=== PATIENT | female | born 1945 | race Caucasian/White ===

== ENCOUNTER 2016-10-24 08:58 | Outpatient (CLI) | payer OTHER ==
[~2016-10-24 08:58] MED LIST: ASPI-1145 PO; EXCEDRIN; IMI50 PO; IMITREX; SUMA100T PO; TIZA6CAP PO
== END 2016-10-24 18:53 | disposition home or self-care (01) ==
LOC: SRD 08:58
PROVIDERS: ATTEND Internal Medicine
DX: M47.892 Other spondylosis, cervical region (principal); M85.88 Other specified disorders of bone density and structure, other site
CPT/HCPCS: 72050-TC

== ENCOUNTER 2016-12-23 13:20 | Emergency (ER) | payer OTHER ==
[~2016-12-23] VITALS: Ht 162.6 cm; Wt 64.4 kg
[2016-12-23 13:20] VITALS: BP 111/63; PULSE 82; RESP 19; O2SAT 98
--- NOTE | 2016-12-23 13:20 | NUR ---
Placed in room 1 . Placed on cardiac nurse specialist, blood pressure machine and pulse oximeter. To gown for exam. Side rails up.
--- NOTE | 2016-12-23 13:20 | NUR ---
pt brought in by wheelchair by sfaff member,pt felt dizzy,had near syncope episode while in the restroom, pt is awake,alert oriented x4.no apparent neuro deficit noted.equal truck dispatcher and pushes.no motor weakness.speech is clear.still feels dizzy.denies any pain and sob.
--- NOTE | 2016-12-23 13:28 | NUR ---
# 20 gauge angiocath placed to lac . Use of asceptic technique. Opsite placed over site. Blood return noted. Blood for lab drawn from site. Flushed with 10 cc of normal saline. No evidence of infiltration noted. Patient tolerated well.
--- NOTE | 2016-12-23 13:28 | NUR ---
ER at bedside examining patient.
[2016-12-23] MEDS ORDERED: NACL 0.9% 1,000 ML IV ONE (13:30)
[2016-12-23 13:40] LABS: BASOPHILS # (AUTO) 0.1 K/uL (0.0-0.2); BASOPHILS % (AUTO) 0.6 % (0.0-2.0); EOSINOPHILS # (AUTO) 0.2 K/uL (0.0-0.4); EOSINOPHILS % (AUTO) 1.7 % (0.0-4.0); HEMATOCRIT 41.3 % (36-48); HEMOGLOBIN 13.6 g/dL (12.0-16.0); LYMPHOCYTES # (AUTO) 3.6 K/uL (1.0-5.5); LYMPHOCYTES % (AUTO) 35.1 % (20.5-51.5); MEAN CORPUSCULAR HEMOGLOBIN 31 pg (27-31); MEAN CORPUSCULAR HGB CONC 33 % (32-36); MEAN CORPUSCULAR VOLUME 95 fL (79.0-98.0); MONOCYTES # (AUTO) 0.5 K/uL (0.0-1.0); MONOCYTES % (AUTO) 4.9 % (1.7-9.3); NEUTROPHILS # (AUTO) 5.8 K/uL (1.8-7.7); NEUTROPHILS % (AUTO) 57.7 % (40.0-70.0); PLATELET COUNT (AUTO) 200 K/uL (130-430); RED BLOOD CELL COUNT(AUTO) 4.37 MIL/uL (4.2-6.2); RED CELL DISTRIBUTION WIDTH 12.6 % (9.0-15.0); WHITE BLOOD COUNT (AUTO) 10.2 K/uL (4.8-10.8)
--- NOTE | 2016-12-23 13:42 | NUR ---
pt c/o having diarrhea for two weeks,mild upper abdominal pain 2/10.no blood in stool.
[2016-12-23 13:50] LABS: ANION GAP 8 (5-15); CALCIUM 9.2 mg/dL (8.4-11.0); CHLORIDE 106 mmol/L (98-107); CREATININE 1.04 mg/dL (0.55-1.30); GLUCOSE 129 mg/dL (70-99); POTASSIUM 3.4 mmol/L (3.5-5.1); SODIUM SERUM 140 mmol/L (136-145); UREA NITROGEN, BLOOD 20 mg/dL (8-21)
[2016-12-23 13:51] LABS: PROTHROMBIN TIME 11.1 SECS (9.5-12.5)
[2016-12-23 13:52] LABS: ALANINE AMINOTRANSFERASE 28 U/L (12-78); ALBUMIN 4.4 g/dL (3.4-4.8); ASPARTATE AMINOTRANSFERASE 23 U/L (10-37); TOTAL BILIRUBIN 0.4 mg/dL (0.0-1.0); TOTAL PROTEIN, SERUM 7.7 g/dL (6.4-8.3)
[2016-12-23 14:23] LABS: BILIRUBIN,URINE NEGATIVE (NEGATIVE); CLARITY/URINE SL HAZY (CLEAR); COLOR,URINE YELLOW (YELLOW); GLUCOSE,URINE NEGATIVE (NEGATIVE); KETONES,URINE TRACE (NEGATIVE); LEUKOCYTE ESTERASE ,URINE NEGATIVE (NEGATIVE); NITRITE, URINE NEGATIVE (NEGATIVE); PROTEIN URINE TRACE (NEGATIVE)
--- NOTE | 2016-12-23 14:23 | NUR ---
pt assisted to the restroom for a few times for the diarrhea.
[2016-12-23 14:27] LABS: BLOOD, URINE TRACE (NEGATIVE)
[2016-12-23 14:36] LABS: BACTERIA,URINE FEW /HPF (None Seen); RBC,URINE 0-3 /HPF (0-3); WBC,URINE NONE SEEN /HPF (0-3)
[2016-12-23 14:37] LABS: MUCUS,URINE 1+ /LPF (None Seen)
--- NOTE | 2016-12-23 14:54 | NUR ---
Patient given written and verbal discharge instructions and verbalizes understanding. ER MD discussed with patient the results and treatment provided. Patient in stable condition. ID arm band removed. IV catheter removed intact and dressing applied, no active bleeding. Rx of cipro given. Patient educated on pain management and to follow up with PMD. Pain Scale 0/10 . Opportunity for questions provided and answered.
[2016-12-23 14:59] VITALS: BP 119/78; PULSE 87; RESP 17; TEMP 98; O2SAT 99
== END 2016-12-23 14:59 | disposition home or self-care (01) ==
LOC: SED 13:20
DX: R55 Syncope and collapse (principal); R19.7 Diarrhea, unspecified; Z88.5 Allergy status to narcotic agent; Z86.73 Personal history of transient ischemic attack (TIA), and cerebral infarction without residual deficits
CPT/HCPCS: 36415; 71010; 80053; 81000; 83880; 84484; 85025; 85610; 85730; 93005; 96360; 99285; J7030

== ENCOUNTER 2017-01-21 06:02 | Outpatient (CLI) | payer OTHER ==
[~2017-01-21 06:02] MED LIST changes: -EXCEDRIN; -IMITREX; -SUMA100T PO
== END 2017-01-21 20:52 | disposition home or self-care (01) ==
LOC: SRD 06:02
PROVIDERS: ATTEND Internal Medicine
DX: S22.079A Unspecified fracture of T9-T10 vertebra, initial encounter for closed fracture (principal); M47.814 Spondylosis without myelopathy or radiculopathy, thoracic region; M81.0 Age-related osteoporosis without current pathological fracture; X58.XXXA Exposure to other specified factors, initial encounter; Y93.89 Activity, other specified; Y92.89 Other specified places as the place of occurrence of the external cause; Y99.8 Other external cause status
CPT/HCPCS: 72072-TC

== ENCOUNTER 2017-03-04 06:58 | Outpatient (CLI) | payer OTHER | END 2017-03-04 18:15 | disposition home or self-care (01) | LOC: SRD 06:58 | PROVIDERS: ATTEND Internal Medicine | DX: S22.009A Unspecified fracture of unspecified thoracic vertebra, initial encounter for closed fracture (principal); M47.894 Other spondylosis, thoracic region; M81.0 Age-related osteoporosis without current pathological fracture; X58.XXXA Exposure to other specified factors, initial encounter; Y93.89 Activity, other specified; Y92.89 Other specified places as the place of occurrence of the external cause; Y99.8 Other external cause status | CPT/HCPCS: 72072-TC ==

== ENCOUNTER 2017-04-10 09:41 | Outpatient (CLI) | payer OTHER | END 2017-04-10 20:20 | disposition home or self-care (01) | LOC: SRD 09:41 | PROVIDERS: ATTEND Internal Medicine | DX: M48.54XA Collapsed vertebra, not elsewhere classified, thoracic region, initial encounter for fracture (principal); M47.894 Other spondylosis, thoracic region | CPT/HCPCS: 72072-TC ==

== ENCOUNTER → 2017-04-22 | Outpatient (CLI) | payer OTHER ==
[2017-04-22 12:31] LABS: BASOPHILS # (AUTO) 0.1 K/uL (0.0-0.2); BASOPHILS % (AUTO) 0.7 % (0.0-2.0); EOSINOPHILS # (AUTO) 0.1 K/uL (0.0-0.4); EOSINOPHILS % (AUTO) 1.5 % (0.0-4.0); HEMATOCRIT 39.7 % (36-48); HEMOGLOBIN 13.5 g/dL (12.0-16.0); LYMPHOCYTES # (AUTO) 1.7 K/uL (1.0-5.5); LYMPHOCYTES % (AUTO) 19.7 % (20.5-51.5); MEAN CORPUSCULAR HEMOGLOBIN 32 pg (27-31); MEAN CORPUSCULAR HGB CONC 34 % (32-36); MEAN CORPUSCULAR VOLUME 94 fL (79.0-98.0); MONOCYTES # (AUTO) 0.3 K/uL (0.0-1.0); MONOCYTES % (AUTO) 3.9 % (1.7-9.3); NEUTROPHILS # (AUTO) 6.6 K/uL (1.8-7.7); NEUTROPHILS % (AUTO) 74.2 % (40.0-70.0); PLATELET COUNT (AUTO) 177 K/uL (130-430); RED BLOOD CELL COUNT(AUTO) 4.22 MIL/uL (4.2-6.2); RED CELL DISTRIBUTION WIDTH 12.9 % (9.0-15.0); WHITE BLOOD COUNT (AUTO) 8.8 K/uL (4.8-10.8)
[2017-04-22 12:43] LABS: ALANINE AMINOTRANSFERASE 21 U/L (12-78); ANION GAP 5 (5-15); ASPARTATE AMINOTRANSFERASE 18 U/L (10-37); CHLORIDE 110 mmol/L (98-107); CREATININE 1.08 mg/dL (0.55-1.30); GLUCOSE 114 mg/dL (70-99); SODIUM SERUM 141 mmol/L (136-145); TOTAL BILIRUBIN 0.4 mg/dL (0.0-1.0); UREA NITROGEN, BLOOD 22 mg/dL (8-21)
[2017-04-22 12:51] LABS: ALBUMIN 4.2 g/dL (3.4-4.8)
[2017-04-22 12:58] LABS: PROTHROMBIN TIME 10.7 SECS (9.5-12.5)
== END | disposition home or self-care (01) ==
LOC: SLB 11:50
PROVIDERS: ATTEND Internal Medicine
DX: T14.8 Other injury of unspecified body region (principal); X58.XXXA Exposure to other specified factors, initial encounter; Y93.89 Activity, other specified; Y92.89 Other specified places as the place of occurrence of the external cause; Y99.8 Other external cause status
CPT/HCPCS: 36415; 80053; 82306; 82607; 85025; 85610-TC; 85730-TC

== ENCOUNTER 2017-05-12 06:36 | Outpatient (CLI) | payer OTHER | END 2017-05-12 19:42 | disposition home or self-care (01) | LOC: SRD 06:36 | PROVIDERS: ATTEND Internal Medicine | DX: M47.896 Other spondylosis, lumbar region (principal); M81.0 Age-related osteoporosis without current pathological fracture; I70.90 Unspecified atherosclerosis | CPT/HCPCS: 72110 ==

== ENCOUNTER 2017-05-14 08:31 | Inpatient (IN) | payer OTHER ==
[~2017-05-14] VITALS: Ht 162.6 cm; Wt 64.4 kg
[2017-05-14 08:34] VITALS: BP_SYST 115
[2017-05-14] MEDS ORDERED: ASPIRIN 325 MG TABLET ONE (08:44)
[2017-05-14] MEDS ORDERED: NITROGLYCERIN 0.4 MG TAB.SUBL SL ONE ×2 (08:44→08:45)
[2017-05-14] MEDS ORDERED: ASPIRIN 81 MG TAB.CHEW PO ONE (08:45)
[2017-05-14] MEDS ORDERED: ONDANSETRON HCL 4 MG/2 ML VIAL IVP ONE (08:45)
[2017-05-14] MEDS ORDERED: MORPHINE 2 MG/ML INJ. SYRINGE IVP ONE (08:45)
[2017-05-14] MEDS ORDERED: NS 500 ML IV ONE (08:45)
[2017-05-14 09:28] LABS: BASOPHILS # (AUTO) 0.1 K/uL (0.0-0.2); BASOPHILS % (AUTO) 0.6 % (0.0-2.0); EOSINOPHILS # (AUTO) 0.2 K/uL (0.0-0.4); EOSINOPHILS % (AUTO) 1.6 % (0.0-4.0); HEMATOCRIT 41.7 % (36-48); HEMOGLOBIN 13.9 g/dL (12.0-16.0); LYMPHOCYTES # (AUTO) 4.2 K/uL (1.0-5.5); LYMPHOCYTES % (AUTO) 39.1 % (20.5-51.5); MEAN CORPUSCULAR HEMOGLOBIN 31 pg (27-31); MEAN CORPUSCULAR HGB CONC 33 % (32-36); MEAN CORPUSCULAR VOLUME 93 fL (79.0-98.0); MONOCYTES # (AUTO) 0.7 K/uL (0.0-1.0); MONOCYTES % (AUTO) 6.1 % (1.7-9.3); NEUTROPHILS # (AUTO) 5.6 K/uL (1.8-7.7); NEUTROPHILS % (AUTO) 52.6 % (40.0-70.0); PLATELET COUNT (AUTO) 216 K/uL (130-430); RED BLOOD CELL COUNT(AUTO) 4.47 MIL/uL (4.2-6.2); RED CELL DISTRIBUTION WIDTH 12.9 % (9.0-15.0); WHITE BLOOD COUNT (AUTO) 10.8 K/uL (4.8-10.8)
[2017-05-14 09:31] LABS: ANION GAP 12 (5-15); CALCIUM 9.5 mg/dL (8.4-11.0); CHLORIDE 109 mmol/L (98-107); GLUCOSE 124 mg/dL (70-99); POTASSIUM 3.6 mmol/L (3.5-5.1); SODIUM SERUM 141 mmol/L (136-145); UREA NITROGEN, BLOOD 20 mg/dL (8-21)
[2017-05-14 09:33] LABS: PROTHROMBIN TIME 10.7 SECS (9.5-12.5)
[2017-05-14 09:36] LABS: ALANINE AMINOTRANSFERASE 19 U/L (12-78); ASPARTATE AMINOTRANSFERASE 18 U/L (10-37); TOTAL BILIRUBIN 0.6 mg/dL (0.0-1.0)
[2017-05-14 10:30] VITALS: BP_SYST 115
[2017-05-14 10:54] VITALS: BP_SYST 115
[2017-05-14] MEDS ORDERED: SUMAtriptan SUCCINATE 50 MG TABLET PO ONE (12:00)
[2017-05-14 12:27] LABS: BILIRUBIN,URINE NEGATIVE (NEGATIVE); BLOOD, URINE 1+ (NEGATIVE); CLARITY/URINE CLEAR (CLEAR); COLOR,URINE YELLOW (YELLOW); GLUCOSE,URINE NEGATIVE (NEGATIVE); KETONES,URINE NEGATIVE (NEGATIVE); LEUKOCYTE ESTERASE ,URINE NEGATIVE (NEGATIVE); NITRITE, URINE NEGATIVE (NEGATIVE); PH,URINE 5.5 (5.0-8.0); PROTEIN URINE NEGATIVE (NEGATIVE); UROBILINOGEN,URINE 0.2 (0.2-1.0)
[2017-05-14 12:43] LABS: BACTERIA,URINE FEW /HPF (None Seen); MUCUS,URINE None Seen /LPF (None Seen); RBC,URINE 0-3 /HPF (0-3); WBC,URINE 0-3 /HPF (0-3)
[2017-05-14] MEDS ORDERED: ACT35 PO (14:29)
[2017-05-14 20:00] VITALS: BP_SYST 108
[2017-05-15 00:11] VITALS: BP_SYST 111
[2017-05-15 05:54] VITALS: BP_SYST 108
[2017-05-15 06:32] LABS: BASOPHILS % (AUTO) 0.5 % (0.0-2.0); EOSINOPHILS # (AUTO) 0.2 K/uL (0.0-0.4); EOSINOPHILS % (AUTO) 1.8 % (0.0-4.0); HEMATOCRIT 34.7 % (36-48); HEMOGLOBIN 11.8 g/dL (12.0-16.0); LYMPHOCYTES # (AUTO) 1.6 K/uL (1.0-5.5); LYMPHOCYTES % (AUTO) 19.2 % (20.5-51.5); MEAN CORPUSCULAR HEMOGLOBIN 32 pg (27-31); MEAN CORPUSCULAR HGB CONC 34 % (32-36); MEAN CORPUSCULAR VOLUME 94 fL (79.0-98.0); MONOCYTES # (AUTO) 0.5 K/uL (0.0-1.0); NEUTROPHILS % (AUTO) 72.5 % (40.0-70.0); PLATELET COUNT (AUTO) 143 K/uL (130-430); RED BLOOD CELL COUNT(AUTO) 3.68 MIL/uL (4.2-6.2); RED CELL DISTRIBUTION WIDTH 12.9 % (9.0-15.0); WHITE BLOOD COUNT (AUTO) 8.3 K/uL (4.8-10.8)
[2017-05-15 07:54] VITALS: BP_SYST 109
[2017-05-15 08:55] LABS: ALANINE AMINOTRANSFERASE 14 U/L (12-78); ANION GAP 11 (5-15); ASPARTATE AMINOTRANSFERASE 15 U/L (10-37); CALCIUM 8.6 mg/dL (8.4-11.0); CHLORIDE 112 mmol/L (98-107); CREATININE 0.73 mg/dL (0.55-1.30); GLUCOSE 85 mg/dL (70-99); POTASSIUM 3.6 mmol/L (3.5-5.1); SODIUM SERUM 143 mmol/L (136-145); TOTAL BILIRUBIN 0.4 mg/dL (0.0-1.0); UREA NITROGEN, BLOOD 11 mg/dL (8-21)
[2017-05-15 08:56] LABS: ALBUMIN 3.3 g/dL (3.4-4.8)
[2017-05-15 09:00] LABS: THYROID STIMULATING HORMONE 0.83 uIu/mL (0.36-3.74)
[2017-05-15 09:14] LABS: CHOLESTEROL 206 mg/dL (<200); HDL CHOLESTEROL 44 mg/dL (>55); LDL CHOLESTEROL 161 mg/dL (<100); TRIGLYCERIDES 134 mg/dL (30-150)
[2017-05-15 12:17] VITALS: BP_SYST 127
[2017-05-15 13:00] VITALS: BP_SYST 113
[2017-05-15] MEDS ORDERED: CYANOCOBALAMIN 1000 MCG/ML VIAL IM ONE (13:00)
== END 2017-05-15 13:20 | disposition home or self-care (01) | DRG 312 ==
LOC: SED 08:31 → STU 10:19
PROVIDERS: ADMIT Internal Medicine; ATTEND Internal Medicine
DX: R55 Syncope and collapse (principal); R00.1 Bradycardia, unspecified; M81.0 Age-related osteoporosis without current pathological fracture; G44.89 Other headache syndrome; M19.90 Unspecified osteoarthritis, unspecified site; K58.1 Irritable bowel syndrome with constipation; J45.909 Unspecified asthma, uncomplicated; Z88.5 Allergy status to narcotic agent; Z79.1 Long term (current) use of non-steroidal anti-inflammatories (NSAID); Z79.82 Long term (current) use of aspirin; Z79.899 Other long term (current) drug therapy; Z88.8 Allergy status to other drugs, medicaments and biological substances; Z86.73 Personal history of transient ischemic attack (TIA), and cerebral infarction without residual deficits
CPT/HCPCS: 36415; 70450-TC; 71010; 80053; 80061; 81000-TC; 83605; 84443-TC; 84484; 85025; 85610-TC; 85730-TC; 87040-TC; 87086; 93005; 93306; 99285; J2270; J2405; J7030

== ENCOUNTER 2017-05-16 15:23 | Emergency (ER) | payer OTHER ==
[~2017-05-16] VITALS: Ht 162.6 cm; Wt 63.5 kg
[~2017-05-16 15:23] MED LIST changes: +ACT35 PO
[2017-05-16 15:33] VITALS: BP_SYST 134
[2017-05-16] MEDS ORDERED: KETOROLAC TROMETHAMINE 60 MG/2 ML VIAL IM ONE (16:15)
[2017-05-16 16:20] VITALS: BP_SYST 121
== END 2017-05-16 16:20 | disposition home or self-care (01) ==
LOC: SED 15:23
DX: S20.211A Contusion of right front wall of thorax, initial encounter (principal); Z86.73 Personal history of transient ischemic attack (TIA), and cerebral infarction without residual deficits; X58.XXXA Exposure to other specified factors, initial encounter; Y93.89 Activity, other specified; Y92.89 Other specified places as the place of occurrence of the external cause; Y99.8 Other external cause status
CPT/HCPCS: 71010; 71100; 99284

== ENCOUNTER 2017-07-22 09:05 | Outpatient (CLI) | payer OTHER | END 2017-07-22 19:09 | disposition home or self-care (01) | LOC: SCT 09:05 | PROVIDERS: ATTEND Internal Medicine | DX: I70.0 Atherosclerosis of aorta (principal); R91.1 Solitary pulmonary nodule | CPT/HCPCS: 71250-TC ==

== ENCOUNTER 2022-09-16 09:34 | Inpatient (IN) | payer OTHER ==
[~2022-09-16] VITALS: Ht 162.6 cm; Wt 56.7 kg
[2022-09-16 09:42] VITALS: BP_SYST 124
--- NOTE | 2022-09-16 09:45 | NUR ---
Patient triaged and placed in waiting room. VSS and patient appears in no acute distress at this time. Accompanied by BLS , awaiting available bed, and MD notified of need for MSE.
--- NOTE | 2022-09-16 09:47 | NUR ---
COVID AND INFLUENZA SWABS COLLECTED AND SENT TO LAB.
--- NOTE | 2022-09-16 10:05 | NUR ---
MD GONZALES AT BEDSIDE FOR MSE.
[2022-09-16] MEDS ORDERED: NACL 0.9% 1,000 ML IV ONE ×2 (10:15)
--- NOTE | 2022-09-16 10:16 | NUR ---
Patient to ER bed 04 to gown for evaluation. Side rails up. Report given to Mykel DECKER.
[2022-09-16 10:41] LABS: BASOPHILS % (AUTO) 0.3 % (0.0-2.0); EOSINOPHILS % (AUTO) 0.2 % (0.0-4.0); HEMATOCRIT 37.4 % (36-48); HEMOGLOBIN 12.6 g/dL (12.0-16.0); LYMPHOCYTES # (AUTO) 0.6 K/uL (1.0-5.5); LYMPHOCYTES % (AUTO) 4.6 % (20.5-51.5); MEAN CORPUSCULAR HEMOGLOBIN 31 pg (27-31); MEAN CORPUSCULAR HGB CONC 34 % (32-36); MEAN CORPUSCULAR VOLUME 93 fL (79.0-98.0); MONOCYTES % (AUTO) 8.1 % (1.7-9.3); NEUTROPHILS # (AUTO) 10.6 K/uL (1.8-7.7); NEUTROPHILS % (AUTO) 86.8 % (40.0-70.0); PLATELET COUNT (AUTO) 229 K/uL (130-430); RED BLOOD CELL COUNT(AUTO) 4.04 MIL/uL (4.2-6.2); RED CELL DISTRIBUTION WIDTH 13.1 % (9.0-15.0); WHITE BLOOD COUNT (AUTO) 12.2 K/uL (4.8-10.8)
[2022-09-16 10:55] LABS: ANION GAP 14 (5-15); CALCIUM 8.9 mg/dL (8.4-11.0); CHLORIDE 100 mmol/L (98-107); CREATININE 0.85 mg/dL (0.55-1.30); GLUCOSE 113 mg/dL (70-99); UREA NITROGEN, BLOOD 10 mg/dL (8-21)
[2022-09-16 11:00] LABS: ALANINE AMINOTRANSFERASE 20 U/L (12-78); ALBUMIN 3.3 g/dL (3.4-4.8); ASPARTATE AMINOTRANSFERASE 16 U/L (10-37); LIPASE 113 U/L (73-393); TOTAL BILIRUBIN 0.7 mg/dL (0.0-1.0)
[2022-09-16] MEDS ORDERED: DOXYCYCLINE HYCLATE 100 MG in D5W 100 ML IV ONE (11:30)
[2022-09-16] MEDS ORDERED: cefTRIAXone 1 GM in D5W 50 ML IV ONE (11:30)
[2022-09-16] MEDS ORDERED: cefTRIAXone 1 GM VIAL ONE (11:36)
[2022-09-16] MEDS ORDERED: DOXYCYCLINE HYCLATE 100 MG VIAL IV ONE (11:36)
[2022-09-16] MEDS ORDERED: MOXI400T30 PO ×2 (12:29)
[2022-09-16 13:39] LABS: BILIRUBIN,URINE NEGATIVE (NEGATIVE); BLOOD, URINE NEGATIVE (NEGATIVE); CLARITY/URINE CLEAR (CLEAR); COLOR,URINE YELLOW (YELLOW); GLUCOSE,URINE NEGATIVE (NEGATIVE); KETONES,URINE TRACE (NEGATIVE); LEUKOCYTE ESTERASE ,URINE NEGATIVE (NEGATIVE); NITRITE, URINE NEGATIVE (NEGATIVE); PROTEIN URINE NEGATIVE (NEGATIVE); UROBILINOGEN,URINE 0.2 (0.2-1.0)
[2022-09-16] MEDS ORDERED: ALEN70TA84 PO (14:32)
[2022-09-16] MEDS ORDERED: TIZA-321 PO (14:32)
[2022-09-16] MEDS ORDERED: SUMA100T PO (14:32)
--- NOTE | 2022-09-16 14:45 | NUR ---
Admit bed requested Patient will be admitted to care of Dr Erlinda JAVIER Admitted to MED SURG unit. Diagnosis PNA Inpatient (Yes or No) YES Observation (Yes or No) NO Orientation concerns or request close to nursing station (Yes or No) NO Covid Status NEGATIVE On vent or bipap NO Isolation requirements NO Needs a sitter NO From Home (Yes or if No enter name of facility) YES Requires Dialysis (Yes or No) NO Med Rec Completed (Yes of No) YES
[2022-09-16] MEDS ORDERED: ALENDRONATE SODIUM 70 MG TABLET (FOSAMAX) PO SCH ×2 (15:00→15:09)
[2022-09-16] MEDS ORDERED: tiZANidine HCL 4 MG TABLET PO PRN (15:00)
[2022-09-16] MEDS ORDERED: MOXIFLOXACIN HCL 400 MG TABLET (AVELOX) PO SCH (15:00)
[2022-09-16] MEDS ORDERED: SUMATRIPTAN SUCCINATE 100 MG PO SCH (15:00)
[2022-09-16] MEDS ORDERED: ACETAMINOPHEN 500 MG TABLET PO PRN (15:00)
[2022-09-16] MEDS: SUMAtriptan SUCCINATE 50 MG TABLET PO PRN (15:45)
[2022-09-16] MEDS: AZITHROMYCIN 500 MG in NS 250 ML IV SCH (19:24)
--- NOTE | 2022-09-16 20:26 | NUR ---
Patient will be admitted to care of Dr Friedman. Admitted tomedsurg unit. Will go to room 107B. Belongings list completed. Complete and up to date summary report printed. SBAR report given to BRIANNE Ann
--- NOTE | 2022-09-16 20:30 | NUR ---
ADMISSION NOTE Received patient from ER via gurney. Patient admitted with diagnosis of PNA. Patient is awake, alert, oriented X 4. Patient oriented to hospital room, call light, toileting, pain management and safety-teach back done. Patient informed that Kedar DECKER will be the nurse and that their room number is 106B. Personal belongings checked and Belongings List documented. Call light within reach.
--- NOTE | 2022-09-16 21:05 | NUR ---
Dr. JAVIER Paged due to patient reporting pain and requesting something other that tylenol. New order for Tramadol 50MG Q6H PRN for pain. Order noted and carried out.
[2022-09-16] MEDS: traMADol HCL HCL 50 MG TABLET (ULTRAM) PO PRN (21:42)
[2022-09-16 21:43] VITALS: BP_SYST 118
[2022-09-17] VITALS (7 sets, daily range): BP systolic 98–141
[2022-09-17] MEDS: traMADol HCL HCL 50 MG TABLET (ULTRAM) PO PRN ×2 (03:58→20:50)
--- NOTE | 2022-09-17 05:15 | NUR ---
CONSULTATION PAGED/CALLED Reason for Consultation: PNA Person Who was Notified: MERI Consulting Physician: JOEL Loop Cutter Specialty: Ordering Physician: YAYA
[2022-09-17 06:35] LABS: BASOPHILS % (AUTO) 0.3 % (0.0-2.0); EOSINOPHILS # (AUTO) 0.1 K/uL (0.0-0.4); EOSINOPHILS % (AUTO) 1.1 % (0.0-4.0); HEMATOCRIT 29.5 % (36-48); HEMOGLOBIN 10.3 g/dL (12.0-16.0); LYMPHOCYTES # (AUTO) 1.1 K/uL (1.0-5.5); MEAN CORPUSCULAR HEMOGLOBIN 32 pg (27-31); MEAN CORPUSCULAR HGB CONC 35 % (32-36); MEAN CORPUSCULAR VOLUME 92 fL (79.0-98.0); MONOCYTES # (AUTO) 0.9 K/uL (0.0-1.0); MONOCYTES % (AUTO) 8.8 % (1.7-9.3); NEUTROPHILS # (AUTO) 8.4 K/uL (1.8-7.7); NEUTROPHILS % (AUTO) 79.8 % (40.0-70.0); PLATELET COUNT (AUTO) 200 K/uL (130-430); RED BLOOD CELL COUNT(AUTO) 3.22 MIL/uL (4.2-6.2); RED CELL DISTRIBUTION WIDTH 12.9 % (9.0-15.0); WHITE BLOOD COUNT (AUTO) 10.5 K/uL (4.8-10.8)
[2022-09-17 07:03] LABS: ALANINE AMINOTRANSFERASE 15 U/L (12-78); ALBUMIN 2.4 g/dL (3.4-4.8); ANION GAP 13 (5-15); ASPARTATE AMINOTRANSFERASE 12 U/L (10-37); CHLORIDE 105 mmol/L (98-107); CREATININE 0.56 mg/dL (0.55-1.30); GLUCOSE 89 mg/dL (70-99); TOTAL BILIRUBIN 0.4 mg/dL (0.0-1.0); UREA NITROGEN, BLOOD 8 mg/dL (8-21)
--- NOTE | 2022-09-17 07:15 | NUR ---
opening note received SBAR from night RN. Patient in bed, respirations even, non labored, bed in low and locked position, call light within reach, bed alarm on.
--- NOTE | 2022-09-17 08:26 | NUR ---
PAGED DR SCHWARTZ SPOKE WITH NEENA REGARDING LOW POTASSIUM 3.3 AND PATIENT IS COMPLAINING OF MIGRAINE AND REQUESTING IMETREX
[2022-09-17] MEDS: cefTRIAXone 1 GM in D5W 50 ML IV SCH (08:50)
--- NOTE | 2022-09-17 09:00 | NUR ---
BATHROOM AMBULATED PATIENT TO THE BATHROOM, VOIDED, RETURNED TO BED,
--- NOTE | 2022-09-17 09:32 | NUR ---
MD DR MOORE ON THE FLOOR, NOTIFIED OF POTASSIUM 3.3 NEW ORDERS RECEIVED
[2022-09-17] MEDS ORDERED: POTASSIUM CHLORIDE 20 MEQ/PKT PACKET PO ONE (09:45)
--- NOTE | 2022-09-17 11:00 | NUR ---
MIGRAINE PATIENT COMPLAINING OF ON COMING MIGRAINE, CLOSED BLINDS, TURNED OFF LIGHTS.
[2022-09-17] MEDS: SUMAtriptan SUCCINATE 50 MG TABLET PO PRN (11:35)
--- NOTE | 2022-09-17 11:59 | NUR ---
BREATHING TREATMENT PATIENT REQUESTING BREATHING TREATMENT, STATES SHE IS HAVING A HARD TIME BREATHING. LISTENED TO LUNGS, DIMINISHED LUNG SOUNDS AT THE BASE. OFFERED TO PLACE PATIENT ON 2L NASAL CANULA AND CALL MD FOR BREATHING TREATMENT ORDER. PATIENT REFUSED 02 BY NASAL CANULA STATES IS MAKES HER NAUSEOUS. EDUCATED PATIENT ON THE INDICATIONS OF 02, ANSWERED ALL QUESTIONS, PATIENT CONTINUED TO REFUSE.
--- NOTE | 2022-09-17 12:02 | NUR ---
PAGED DR MOODY AND SPOKE WITH AUDRA FOR ORDERS FOR BREATHING TREATMENT. Addendum: 09/17/22 at 1206 by Ben Martinez RN DR MOORE
--- NOTE | 2022-09-17 12:06 | NUR ---
SPOKE WITH DR MOORE, INFORMED OF REQUEST FOR BREATHING TREATMENTS, HE STATES HE WILL PLACE ORDERS
[2022-09-17] MEDS ORDERED: PANTOPRAZOLE SODIUM 40 MG/VIAL (PROTONIX) IVP ONE (12:30)
--- NOTE | 2022-09-17 17:15 | NUR ---
PAGED DR JAVIER FOR ORDERS FOR NAUSEA. SPOKE WITH NICHOLE
--- NOTE | 2022-09-17 18:11 | NUR ---
MD INFORMED MD THAT PATIENT IS COMPLAINING OF NAUSEA, NEW ORDERS RECEIVED
[2022-09-17] MEDS ORDERED: ONDANSETRON HCL 4 MG/2 ML VIAL IVP PRN (18:15)
--- NOTE | 2022-09-17 19:16 | NUR ---
CLOSING NOTE PROVIDED SBAR TO NIGHT RN. PATIENT IN BED, RESPIRATIONS EVEN, NON LABORED, BED IN LOW AND LOCKED POSITION CALL LIGHT WITHIN REACH, BED ALARM ON. ENDORSED TO NIGHT RN. COLLECTION FOR STOOL, AND ADMINISTRATION OF ZOFRAN. PATIENT TO BE NPO AFTER MIDNIGHT FOR MORNING CT SCAN
--- NOTE | 2022-09-17 19:30 | NUR ---
OPENING NOTES: Patient received from AM shift nurse. Patient is in bed with daughter at bedside no s/s of distress is noted and call light is within reach. Chest rise is even and unlabored on RA. Patient was provided education about pending CT tomorrow and provided education on NPO status that will begin at Midnight, Patient verbalized understanding. Safety measures are in place as per protocol. Will resume care and continue to monitor throughout the shift.
[2022-09-17] MEDS: PANTOPRAZOLE SODIUM 40 MG/VIAL (PROTONIX) IVP SCH (20:52)
[2022-09-17] MEDS: AZITHROMYCIN 500 MG in NS 250 ML IV SCH (20:52)
[2022-09-17] MEDS: ALBUTEROL SULFATE 0.083% 2.5 MG/3 ML VIAL.NEB INH PRN (21:13)
[2022-09-18 00:49] VITALS: BP_SYST 100; BP_SYST 140
--- NOTE | 2022-09-18 06:28 | NUR ---
CLOSING NOTES: Patient is in bed resting no s/s of distress is noted at this time, chest rise is even and unlabored on RA. Patient is AA&Ox4 able to make needs known, with call light within reach. Patient has a pending CT this morning so Patient is NPO since Midnight. Patient was provided education on NPO status and verbalized understanding. Patient has orders for a stool culture that was not collected because patient did not pass stool this shift so will endorse to AM shift RN. Safety measures are in place as per protocol. Will differ care to AM shift nurse for continuity of care.
--- NOTE | 2022-09-18 07:30 | NUR ---
Received patient awake, alert and oriented x4, in no acute distress. Respiration is even and unlabored with no c/o SOB. Head to toe assessment is done. Patient is NPO. No c/o pain at this time. Awaiting for CT of he abdomen. VSS
[2022-09-18] MEDS ORDERED: DIATR MEGLU/DIATRIZ SOD 30 ML SOLUTION PO ONE (07:41)
[2022-09-18 08:00] VITALS: BP_SYST 126
[2022-09-18] MEDS: PANTOPRAZOLE SODIUM 40 MG/VIAL (PROTONIX) IVP SCH ×2 (09:52→21:40)
[2022-09-18] MEDS: cefTRIAXone 1 GM in D5W 50 ML IV SCH (09:53)
--- NOTE | 2022-09-18 10:10 | NUR ---
Patient went to CT of the abdomen with IV contrast, consent is signed.
[2022-09-18] MEDS ORDERED: NALOXONE HCL 0.4 MG/ML AMP (NARCAN) IVP PRN (10:45)
--- NOTE | 2022-09-18 10:49 | NUR ---
Came back with CT w/ c/o pain on the neck, head, back. Patient requested for strong pain medication, refused Ultram at this time. Called Dr. Meng with orders. Order made, noted, and carried out. Patient made aware.
[2022-09-18 11:25] VITALS: BP_SYST 121
[2022-09-18 11:27] LABS: ANION GAP 11 (5-15); CALCIUM 8.7 mg/dL (8.4-11.0); CHLORIDE 104 mmol/L (98-107); CREATININE 0.64 mg/dL (0.55-1.30); GLUCOSE 102 mg/dL (70-99); UREA NITROGEN, BLOOD 6 mg/dL (8-21)
[2022-09-18] MEDS: HYDROcodone/ACETAMIN 5-325 MG TAB (NORCO/ VICODIN) PO PRN (11:53)
--- NOTE | 2022-09-18 13:00 | NUR ---
Dietitian Recommendations * Rec regular diet when appropriate * Please change diet order to reflect current diet * Send snacks in between meals (RD entered in [employer]) GS, MPH, RD Please refer to RD Assessment for further details. Thanks! Addendum: 09/18/22 at [address] Amended: Links added.
[2022-09-18 15:40] VITALS: BP_SYST 94
--- NOTE | 2022-09-18 17:22 | NUR ---
Called Dr. Lam and informed him that Dr. Alan is not going to do any GI procedure, patient can eat or have PO meds. Patient refused to have clear liquid diet. Swallow screen done. Patient does not have any s/s of dysphagia. MD made aware and ordered to replace clear liquid to regular diet. Patient made aware.
[2022-09-18 20:00] VITALS: BP_SYST 118
[2022-09-18] MEDS: AZITHROMYCIN 500 MG in NS 250 ML IV SCH (21:39)
[2022-09-18] MEDS: ALBUTEROL SULFATE 0.083% 2.5 MG/3 ML VIAL.NEB INH PRN (21:58)
[2022-09-19] MEDS: HYDROcodone/ACETAMIN 5-325 MG TAB (NORCO/ VICODIN) PO PRN (00:11)
[2022-09-19 00:38] VITALS: BP_SYST 116
[2022-09-19 06:26] LABS: BASOPHILS % (AUTO) 0.4 % (0.0-2.0); EOSINOPHILS # (AUTO) 0.1 K/uL (0.0-0.4); EOSINOPHILS % (AUTO) 1.3 % (0.0-4.0); HEMATOCRIT 32.1 % (36-48); HEMOGLOBIN 10.9 g/dL (12.0-16.0); LYMPHOCYTES # (AUTO) 1.3 K/uL (1.0-5.5); LYMPHOCYTES % (AUTO) 11.4 % (20.5-51.5); MEAN CORPUSCULAR HEMOGLOBIN 32 pg (27-31); MEAN CORPUSCULAR HGB CONC 34 % (32-36); MEAN CORPUSCULAR VOLUME 94 fL (79.0-98.0); MONOCYTES # (AUTO) 0.8 K/uL (0.0-1.0); MONOCYTES % (AUTO) 7.2 % (1.7-9.3); NEUTROPHILS % (AUTO) 79.7 % (40.0-70.0); PLATELET COUNT (AUTO) 237 K/uL (130-430); RED BLOOD CELL COUNT(AUTO) 3.43 MIL/uL (4.2-6.2); RED CELL DISTRIBUTION WIDTH 13.1 % (9.0-15.0); WHITE BLOOD COUNT (AUTO) 11.3 K/uL (4.8-10.8)
[2022-09-19 06:51] LABS: ANION GAP 10 (5-15); CALCIUM 8.3 mg/dL (8.4-11.0); CHLORIDE 107 mmol/L (98-107); GLUCOSE 101 mg/dL (70-99); UREA NITROGEN, BLOOD 8 mg/dL (8-21)
[2022-09-19 08:55] VITALS: BP_SYST 148
[2022-09-19] MEDS: cefTRIAXone 1 GM in D5W 50 ML IV SCH (10:41)
[2022-09-19] MEDS: PANTOPRAZOLE SODIUM 40 MG/VIAL (PROTONIX) IVP SCH ×2 (10:57→22:15)
[2022-09-19 11:29] VITALS: BP_SYST 139
--- NOTE | 2022-09-19 15:08 | NUR ---
CONSULTATION PAGED/CALLED Reason for Consultation: [] TREMOR Person Who was Notified: [] DR Haja VALENTIN Consulting Physician: [] DR Haja VALENTIN Wrapper Off Specialty: [] NEURO Ordering Physician: [] DR TERESA VALENTIN WILL SEE PT EITHER LATE TODAY OR TOMORROW.
[2022-09-19 16:04] VITALS: BP_SYST 138
[2022-09-19 20:00] VITALS: BP_SYST 153
--- NOTE | 2022-09-19 20:03 | NUR ---
RECEIVED PT LYING IN BED, NO DISTRESS NOTED, DENIES PAIN AAOX4, IV NO FUNCTIONING WILL NEED TO REPLACE. O2 SAT 95% ON RA. DIMINISHED LUNG SOUNDS, NO FEVER NOTED. DRY WEAK COUGH. PALPABLE PULSE TO ALL EXTREMITIES.
[2022-09-19] MEDS: DOXYCYCLINE HYCLATE 100 MG CAPSULE PO SCH (22:15)
[2022-09-20] MEDS: traMADol HCL HCL 50 MG TABLET (ULTRAM) PO PRN ×2 (00:23→08:54)
[2022-09-20 00:36] VITALS: BP_SYST 143
[2022-09-20 07:27] LABS: BASOPHILS # (AUTO) 0.1 K/uL (0.0-0.2); BASOPHILS % (AUTO) 0.6 % (0.0-2.0); EOSINOPHILS # (AUTO) 0.1 K/uL (0.0-0.4); EOSINOPHILS % (AUTO) 1.3 % (0.0-4.0); HEMATOCRIT 32.1 % (36-48); HEMOGLOBIN 11.1 g/dL (12.0-16.0); LYMPHOCYTES % (AUTO) 10.9 % (20.5-51.5); MEAN CORPUSCULAR HEMOGLOBIN 32 pg (27-31); MEAN CORPUSCULAR HGB CONC 34 % (32-36); MEAN CORPUSCULAR VOLUME 92 fL (79.0-98.0); MONOCYTES # (AUTO) 0.6 K/uL (0.0-1.0); MONOCYTES % (AUTO) 6.3 % (1.7-9.3); NEUTROPHILS # (AUTO) 7.7 K/uL (1.8-7.7); NEUTROPHILS % (AUTO) 80.9 % (40.0-70.0); PLATELET COUNT (AUTO) 258 K/uL (130-430); RED BLOOD CELL COUNT(AUTO) 3.51 MIL/uL (4.2-6.2); RED CELL DISTRIBUTION WIDTH 13.1 % (9.0-15.0); WHITE BLOOD COUNT (AUTO) 9.6 K/uL (4.8-10.8)
[2022-09-20 07:47] VITALS: BP_SYST 141
[2022-09-20 08:04] LABS: ANION GAP 9 (5-15); CALCIUM 8.6 mg/dL (8.4-11.0); CHLORIDE 106 mmol/L (98-107); CREATININE 0.51 mg/dL (0.55-1.30); GLUCOSE 100 mg/dL (70-99); UREA NITROGEN, BLOOD 9 mg/dL (8-21)
[2022-09-20] MEDS: PANTOPRAZOLE SODIUM 40 MG/VIAL (PROTONIX) IVP SCH (08:53)
[2022-09-20] MEDS: DOXYCYCLINE HYCLATE 100 MG CAPSULE PO SCH (08:53)
[2022-09-20 12:00] VITALS: BP_SYST 138
[2022-09-20 18:23] VITALS: BP_SYST 133
[2022-09-20] MEDS ORDERED: DOXY100C5 PO (19:08)
--- NOTE | 2022-09-20 19:27 | NUR ---
D/C Patient to home picked by daughter via [facility]. Patient given medication reconciliation form and D/C instructions. Exit Care provided. Patient verbalized understanding. MD discussed with patient the results and treatment provided. Ambulatory with steady gait for discharge to home. Patient in stable condition, ID band removed. IV catheter removed, intact and dressing applied, no active bleeding. Rx of Patient educated on pain management. All belongings sent with patient. VSS. BP 132/74; ND 68; RR 18; o2 sat on RA 98%, denies any pain or discomfort.
== END 2022-09-20 19:27 | disposition home or self-care (01) | DRG 391 ==
LOC: SED 09:34 → SMU 13:26
PROVIDERS: ADMIT Internal Medicine; ATTEND Internal Medicine
DX: R19.7 Diarrhea, unspecified (principal); J18.9 Pneumonia, unspecified organism; I25.10 Atherosclerotic heart disease of native coronary artery without angina pectoris; G43.909 Migraine, unspecified, not intractable, without status migrainosus; G25.0 Essential tremor; Z20.822 Contact with and (suspected) exposure to COVID-19; F17.210 Nicotine dependence, cigarettes, uncomplicated; Z88.8 Allergy status to other drugs, medicaments and biological substances; Z79.899 Other long term (current) drug therapy; Z86.73 Personal history of transient ischemic attack (TIA), and cerebral infarction without residual deficits; Z87.01 Personal history of pneumonia (recurrent); I25.2 Old myocardial infarction; Z79.82 Long term (current) use of aspirin
CPT/HCPCS: 36415; 71045; 76376; 80048; 80053; 81003; 83605; 83690; 85025; 85651-TC; 86738; 87040; 93005; 94640; 94760; 99285; C9113; J0456; J0696; J2405; J3490; J7050; J7060; J7613; Q9964